=== PATIENT | male | born 2000 | race Caucasian/White ===

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

== ENCOUNTER 2019-02-14 01:15 | Emergency (ER) | payer OTHER ==
[~2019-02-14] VITALS: Ht 177.8 cm; Wt 91.8 kg
[2019-02-14 01:28] VITALS: Ht 177.8 cm; Wt 91.8 kg
[2019-02-14 06:11] VITALS: BP 122/70
== END 2019-02-14 06:11 | disposition home or self-care (01) ==
LOC: ED 01:15
DX: S20.221A Contusion of right back wall of thorax, initial encounter (principal); V49.49XA Driver injured in collision with other motor vehicles in traffic accident, initial encounter; Y93.I9 Activity, other involving external motion; Y92.413 State road as the place of occurrence of the external cause; Y99.8 Other external cause status
CPT/HCPCS: 72072

== ENCOUNTER 2019-04-08 16:03 | Emergency (ER) | payer OTHER ==
[~2019-04-08] VITALS: Ht 154.9 cm; Wt 91.6 kg
[2019-04-08 16:08] VITALS: Ht 154.9 cm; Wt 91.6 kg
[2019-04-08 20:33] VITALS: BP 118/70
== END 2019-04-08 20:33 | disposition home or self-care (01) ==
LOC: ED 16:03
DX: R10.84 Generalized abdominal pain (principal); R11.0 Nausea
CPT/HCPCS: Q0162